=== PATIENT | female | born 1980 | race Caucasian/White ===

== ENCOUNTER 2017-04-19 07:20 | Emergency (ER) | payer OTHER ==
[~2017-04-19] VITALS: Ht 157.5 cm; Wt 100.0 kg
[~2017-04-19 07:20] MED LIST: PRE20 PO
[2017-04-19 07:22] VITALS: BP 146/86; PULSE 98; RESP 24; O2SAT 94
[2017-04-19] MEDS ORDERED: Albuterol-Ipratropium 3 mL Inhalation Solution ONE (07:23)
--- NOTE | 2017-04-19 07:27 | ED.REPORT ---
HPI-General Illness Date of Service Apr 19, 2017 ED Provider: Ramesh Zapien DO The patient is a 36 year old female w/ a hx of restrictive airway disease who presents to the ED due to shortness of breath onset a day and a half ago. The pt has a cold and reports that her breathing worsens whenever she gets ill. She has been using her inhaler excessively with no relief of symptoms. She denies fever. Nursing Notes Stated Complaint: TROUBLE BREATHING Chief Complaint: Respiratory Distress Nursing Notes Reviewed: Yes Allergies: Coded Allergies: TAPE (Verified Allergy, Unknown, 09/04/16) Scheduled Albuterol HFA (Proair HFA) 8.5 Gm Hfa.aer.ad 2 PUFFS INHALATION Q4H Albuterol HFA (Proair HFA) 8.5 Gm Hfa.aer.ad 2 PUFFS INHALATION Q4H Beclomethasone Dipropionate (Qvar) 8.7 Gm Aer.w.adap 1 PUFF INHALATION BID Prednisone (PredniSONE) 20 Mg Tablet 60 MG PO DAILY General Time Seen by MD: 07:26 Chief Complaint Breathing problem Hx Obtained From: Patient Arrived By: Walk-in Sudden in Onset?: Yes Onset Occurred: 2 days ago Symptom Duration: Since onset Severity: Current: No pain currently Associated with: Reports: Cough, Difficulty breathing, Nasal discharge, Shortness of breath, Denies: Fever Recent Healthcare: No recent doctor visit Similar Sx Previous: Yes Past Medical History Past Medical History Restrictive airways disease Past Surgical History None reported Smoking History Unknown if Ever Smoker Social History Other Social History: Local resident Ambulatory Status Independent Review of Systems Full Review of Systems Constitutional: Denies: Chills, Fever Ears / Nose / Throat: Reports: Nasal congestion Respiratory: Reports: Non-productive cough, Shortness of breath, Wheezing Skin: Denies Diaphoresis Complete sys rev & neg: except as marked. Physical Exam Vital Signs Vital Signs Date Time Temp Pulse Resp B/P Pulse Ox O2 Delivery O2 Flow Rate FiO2 04/19/17 08:00 104 99 Room Air 04/19/17 07:40 97 22 98 Aerosol Mask 8 04/19/17 07:22 36.2 98 24 146/86 94 Initial VS: Reviewed General/Constitutional: Awake, Alert, Cooperative Head / Eyes: Atraumatic, Normocephalic, PERRL Neck: Atraumatic, Supple Wheezing / Retractions: Positive: Wheezing expiratory visually dyspneic Cardiovascular: Heart rate NL, Regular rhythm, Heart sounds NL Upper Extremities Upper Extremity / MS: Atraumatic, Inspection NL, No deformity Lower Extremity / Pelvis / MS: Atraumatic, Inspection NL, No deformity Skin: Atraumatic, Warm, Dry Neurologic: Oriented X3, Speech NL, No motor deficits Re-Eval/Medical Decision Med Decision/Clinical Course Likely reactive airway disease in the setting of recent probable viral illness. No indication for chest x-ray, feels significantly better after nebulizer treatment. Recommend continuing Qvar, prednisone burst, albuterol with spacer. Return in follow-up precautions given. Time of Eval: 08:15 Patient Status: Condition improved Re-Evaluation/Progress Note: Minimal wheezing, speaking full sentences, notes dramatic clinical improvement. Feels stable for discharge. Discharge & Departure Primary Impression: Asthma exacerbation Disposition: Home Discharge Condition All VS Reviewed: Yes Condition: Stable Additional Instructions: Thank you for entrusting us with your care today. I am sending you home with a 5 day course of steroids and a spacer. Follow up with your primary care physician. Return to the Emergency Department if you experience any new or worsening symptoms including increased shortness of breath, wheezing, lightheadedness, nausea, and vomiting. I hope you feel better soon! Referrals: Haja Schuler (PCP) Scribe Attestation Portion of this note were transcribed by Carrie Amaya. I, Dr. Zapien, personally performed the history, physical exam, and medical decision-making: I reviewed and confirmed the accuracy for the information in the transcribed note. Signed by: venu Haines, 04/19/17 1000 copies to: Haja Schuler Timothy S DO Apr 19, 2017 07:27 Carrie Amaya Apr 19, 2017 07:41
[2017-04-19] MEDS ORDERED: Albuterol-Ipratropium 3 mL Inhalation Solution NEB ONE ×2 (07:30→07:35)
[2017-04-19] MEDS ORDERED: predniSONE 20 mg Tablet PO ONE (07:30)
[2017-04-19] MEDS ORDERED: Albuterol 2.5 mg/3 mL Inhalation Solution NEB ONE ×2 (07:30→07:35)
[2017-04-19 07:40] VITALS: PULSE 97; RESP 22; O2SAT 98
[2017-04-19] MEDS ORDERED: ALBU8.5H2 INHALATION ×2 (07:58→08:24)
[2017-04-19] MEDS ORDERED: BECL8.7A6 INHALATION (07:58)
[2017-04-19 08:00] VITALS: PULSE 104; O2SAT 99
[2017-04-19] MEDS ORDERED: PRE20 PO (08:24)
[2017-04-19 08:53] VITALS: BP 130/67; PULSE 112; RESP 16; O2SAT 95
== END 2017-04-19 08:55 | disposition home or self-care (01) ==
LOC: SED 07:20
DX: J45.901 Unspecified asthma with (acute) exacerbation (principal)
CPT/HCPCS: 94644; 99284; J7613; J7620